=== PATIENT | male | born 2000 | race Caucasian/White ===

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

== ENCOUNTER 2022-05-23 17:37 | Emergency (ER) | payer BC, MEDICAID, SELFPAY ==
[2022-05-23 17:48] VITALS: BP 112/67; PULSE 76; RESP 17; TEMP 36.7; O2SAT 99
--- NOTE | 2022-05-23 18:23 | ED.GENADUL_ITS ---
Discharge Plan Disposition Patient Disposition: HOME Condition: Stable Discharge Details Clinical Impression: Dermal hypersensitivity reaction Primary Care Provider: Unknown,Unknown ED Provider: Twin Pérez Home Meds and New Rx's Prescriptions: Continued omeprazole magnesium [Prilosec OTC] 20 mg tablet,delayed release (DR/EC) 20 mg PO DAILY Qty: 90 1RF fluoxetine [Prozac] 20 mg capsule 20 mg PO DAILY Qty: 30 0RF Discharge Instructions Instructions: Dermatitis (ED) Additional Instructions: Return immediately to the emergency department for any new or significant worsening of your symptoms including any difficulty breathing, swelling to your lips tongue or mouth, or any other concerning findings. Use the medication as p rescribed and if not improving in the next 5 days please follow-up with your primary care provider for reassessment. You may also use [id number] oral Benadryl or Benadryl cream for itching. Referrals: Primary Care Provider [Outside] (Placement improving in the next 5 days please follow-up with primary care provider or urgent care for reassessment.) Discharge Data Discharge Date/Time-TO BE ENTERED AT DEPARTURE: 05/23/22 19:06 Medical Decision Making Patient presenting to the emergency department for chief complaint of catheter staying in reaction to the right side of his neck also noted on his hands. He states he was working and his boss noted a catheter on his back yesterday which is when symptoms started. Patient denies any other contact with substances that are irritants. Patient denies any swelling to lips tongue mouth, difficulty breathing or swallowing, or other systemic symptoms. Physical exam does show a dermatitis mainly to the right side of the neck and on his digits. Will prescribe high-strength steroid cream and recommend [id number] Benadryl. No signs of anaphylaxis or life-threatening airway disorder noted at this time but will give patient close monitoring and return and follow-up precautions. After discussion of diagnosis and plan of care patient has no further needs, questions, or concerns and states clear understanding to return to the emergency department for any worsening symptoms. This documentation was generated using [employer] system, please disregard any oddities of phrase or misspellings. HPI General Mode of arrival: ambulatory . Date/Time Provider Initiated Documentation: 05/23/22 17:47 . Limitations to Documentation: no limitations . Information obtained by: patient and RN notes reviewed . History of Present Illness 22 year old M presents to the emergency department with the chief complaint of rash from [employer], described as moderate, with intensity rated at 5. Quality is described as burning, and is localized to the neck and right. Patient started experiencing this day(s) (1) and it has been constant. No relieving factors improve symptom(s), Patient notes no other symptoms.. Patient did receive the following treatments prior to arrival, none Related Data Home Medications Medication Instructions Recorded Confirmed fluoxetine 20 mg capsule (Prozac) 20 mg PO DAILY #30 caps 11/10/21 11/10/21 omeprazole magnesium 20 mg 20 mg PO DAILY #90 tabs 11/10/21 11/10/21 tablet,delayed release (Prilosec OTC) Previous Rx's Medication Instructions Recorded fluoxetine 20 mg capsule (Prozac) 20 mg PO DAILY #30 caps 11/10/21 omeprazole magnesium 20 mg 20 mg PO DAILY #90 tabs 11/10/21 tablet,delayed release (Prilosec OTC) Allergies Allergy/AdvReac Type Severity Reaction Status Date / Time No Known Allergies Allergy Verified 10/07/21 13:05 General Stated Complaint: Cellulitis BRAYDEN: 4 Review of Systems Constitutional Constitutional: Denies chills and Denies fever(s) ENT Ears, Nose, Mouth, and Throat: Denies lip swelling, Denies odynophagia, Denies throat swelling and Denies tongue swelling Cardiovascular Cardiovascular: Denies chest pain Respiratory Respiratory: Denies stridor and Denies wheezing Gastrointestinal Gastrointestinal: Denies abdominal pain and Denies odynophagia Musculoskeletal Musculoskeletal: Denies myalgias, Denies numbness and Denies tingling Integumentary/Breasts Skin/Breast: Reports as per HPI and Reports rash Neurologic Neurologic: Denies numbness and Denies tingling Allergic/Immunologic Allergic/Immunologic: Denies lip swelling, Denies throat swelling, Denies tongue swelling and Denies wheezing PFSH All Active Problems (Updated 05/23/22 @ 18:25 by Twin Pérez NP) Dermal hypersensitivity reaction (Acute) GERD (gastroesophageal reflux disease) (Chronic) Anxiety (Chronic) Medical History Attention deficit hyperactivity disorder Closed left clavicular fracture With surgery 01/08 Learning difficulty IEP Oppositional defiant disorder (09/11/15) Pain in testicle due to trauma ER evaluation 09/22/18 Right inguinal hernia Surgical History Circumcision History of herniorrhaphy right inguinal, Dr Dee Dee Nolen, [facility] Repair, Undescended Testicle 07/23 Family History Mother Essential hypertension Mental disorder depression/anxiety Father Mental disorder anxiety Sister Asthma Grandparent Diabetes Mental disorder anxiety Neoplasm Social History Smoking/Tobacco Use Status: Never Smoking risk assessment performed?: Yes Alcohol Intake: never Drug use: Never Substance use type: does not use Household members: other Details: Living at home with mom, dad, sister Education Level: other Details: Working at [employer]; Training: ladder one: on-line and hands-on current occupation: [employer] advisor Pets and animals: Yes (2 cats) Pets and animals: cat(s) Sexually active: Yes Seatbelt use: always Helmet use: Yes Helmet use: always Fire extinguisher in home: Yes Carbon monox detector in home: Yes Do you feel safe at home: Yes Do you feel safe in your relationship?: Yes Exam Const General: cooperative, healthy appearing, comfortable, no acute distress and not ill appearing Orientation: alert, awake and oriented x3 HENMT Head: normal to inspection and normocephalic Ears: external ears normal General nose exam: external nose normal Face and sinus: normal facial exam Mouth: oral mucosae normal, lip normal, tongue normal, no audible dysphonia, no drooling and no trismus Throat: uvula midline Neck Neck: normal visual inspection, full ROM and no meningeal signs Resp Effort & Inspection: normal respiratory effort, able to speak in complete sentences and no stridor Auscultation: clear to auscultation bilaterally Cardio Rate: regular rate Rhythm: regular rhythm Heart Sounds: S1 normal and S2 normal Skin Rashes: rashes noted maculopapular rash right lateral multiple locations Course Vital Signs Vital signs: Vital Signs Temperature 36.7 C 05/23/22 17:48 Pulse 76 05/23/22 17:48 Respiratory Rate 17 05/23/22 17:48 Blood Pressure 112/67 05/23/22 17:48 Pulse Oximetry 99 05/23/22 17:48 Temperature 36.7 C 05/23/22 17:48 Temperature Source Temporal Artery Scan 05/23/22 17:48 Pulse 76 05/23/22 17:48 Respiratory Rate 17 05/23/22 17:48 Respiratory Effort Non-Labored 05/23/22 17:58 Blood Pressure 112/67 05/23/22 17:48 Blood Pressure Position Sitting 05/23/22 17:48 Pulse Oximetry 99 05/23/22 17:48 Oxygen Delivery Method Room Air 05/23/22 17:48 Oxygen Flow Rate 0 05/23/22 17:48 Pain Level 0 05/23/22 17:48
[2022-05-23] MEDS: Triamcinolone 0.1% CR 15 GM TUBE TP (19:06)
== END 2022-05-23 19:06 | disposition home or self-care (01) ==
PROVIDERS: Emergency Provider Nurse Practitioner Family
DX: T78.40XA Allergy, unspecified, initial encounter (principal); R21 Rash and other nonspecific skin eruption; X58.XXXA Exposure to other specified factors, initial encounter
CPT/HCPCS: 99283; 99284

== ENCOUNTER 2023-05-10 16:38 | Emergency (ER) | payer BC, SELFPAY ==
[2023-05-10 16:42] VITALS: BP 128/90; PULSE 60; RESP 20; TEMP 37; O2SAT 90
--- NOTE | 2023-05-10 17:21 | W.ED.GENAD ---
Discharge Plan Disposition Patient Disposition: Home Discharge Details Clinical Impression: Contact dermatitis and eczema due to plant Primary Care Provider: Tirso Kong ED Provider: Twin Pérez Home Meds and New Rx's Prescriptions: New methylprednisolone [Medrol (Joey)] 4 mg tablets,dose pack See Rx Instructions .ROUTE .COMPLEX Qty: 21 0RF Rx Instructions: orally per package directions No Action omeprazole magnesium [Prilosec OTC] 20 mg tablet,delayed release (DR/EC) 20 mg PO DAILY Qty: 90 1RF fluoxetine [Prozac] 20 mg capsule 20 mg PO DAILY Qty: 30 0RF Discharge Instructions Instructions: Poison Keisha (ED) Additional Instructions: Please take medication as prescribed and return to the emergency department for any new or worsening symptoms. If you do not see some resolution or improvement after being on the steroids for 3 to 4 days please follow-up with your primary care provider or urgent care for reassessment. Referrals: Tirso Kong MD [Primary Care Provider] - Discharge Data Discharge Date/Time-TO BE ENTERED AT DEPARTURE: 05/10/23 17:30 Medical Decision Making Patient with poison keisha that is diffuse to upper and lower extremities along with genitals and neck. Patient placed upon steroids. After discussion of diagnosis and plan of care patient has no further needs, questions, or concerns and states clear understanding to return to the emergency department for any worsening symptoms. This documentation was generated using [employer] dictation system, please disregard any oddities of phrase or misspellings. HPI General Mode of arrival: ambulatory. Date/Time Provider Initiated Documentation: 05/10/23 17:21. Limitations to Documentation: no limitations. Information obtained by: patient. History of Present Illness 22 year old M presents to the emergency department with the chief complaint of Rash, described as similar to prior episodes, Patient started experiencing this day(s) (3) Patient notes no other symptoms.. Related Data Home Medications Medication Instructions Recorded Confirmed fluoxetine 20 mg capsule (Prozac) 20 mg PO DAILY #30 caps 11/10/21 05/10/23 omeprazole magnesium 20 mg 20 mg PO DAILY #90 tabs 11/10/21 05/10/23 tablet,delayed release (Prilosec OTC) methylprednisolone 4 mg tablets in See Rx Instructions PO .COMPLEX 05/10/23 a dose pack (Medrol (Joey)) #21 dose pk Previous Rx's Medication Instructions Recorded fluoxetine 20 mg capsule (Prozac) 20 mg PO DAILY #30 caps 11/10/21 omeprazole magnesium 20 mg 20 mg PO DAILY #90 tabs 11/10/21 tablet,delayed release (Prilosec OTC) methylprednisolone 4 mg tablets in See Rx Instructions PO .COMPLEX 05/10/23 a dose pack (Medrol (Joey)) #21 dose pk Allergies Allergy/AdvReac Type Severity Reaction Status Date / Time No Known Allergies Allergy Verified 10/07/21 13:05 General Stated Complaint: RashLesion BRAYDEN: 4 Review of Systems Constitutional Constitutional: Denies chills and Denies fever(s) ENT Ears, Nose, Mouth, and Throat: Denies lip swelling, Denies mouth lesions, Denies sore throat, Denies throat swelling and Denies tongue swelling Cardiovascular Cardiovascular: Denies dyspnea Respiratory Respiratory: Denies dyspnea and Denies wheezing Integumentary/Breasts Skin/Breast: Reports as per HPI, Reports erythema and Reports rash Allergic/Immunologic Allergic/Immunologic: Denies lip swelling, Denies throat swelling, Denies tongue swelling and Denies wheezing PFSH All Active Problems (Updated 05/10/23 @ 17:22 by Twin Pérez NP) Contact dermatitis and eczema due to plant (Acute) GERD (gastroesophageal reflux disease) (Chronic) Anxiety (Chronic) Medical History Attention deficit hyperactivity disorder Closed left clavicular fracture With surgery 01/08 Learning difficulty IEP Oppositional defiant disorder (09/11/15) Pain in testicle due to trauma ER evaluation 09/22/18 Right inguinal hernia Surgical History Circumcision History of herniorrhaphy right inguinal, Dr Dee Dee Nolen, [place] Repair, Undescended Testicle 07/23 Family History Mother Essential hypertension Mental disorder depression/anxiety Father Mental disorder anxiety Sister Asthma Grandparent Diabetes Mental disorder anxiety Neoplasm Social History Smoking/Tobacco Use Status: Never Smoking risk assessment performed?: Yes Alcohol Intake: never Drug use: Never Substance use type: does not use Household members: other Details: Living at home with mom, dad, sister Education Level: other Details: Working at [employer]; Training: ladder one: on-line and hands-on current occupation: fruit or nut farmer Pets and animals: Yes (2 cats) Pets and animals: cat(s) Sexually active: Yes Seatbelt use: always Helmet use: Yes Helmet use: always Fire extinguisher in home: Yes Carbon monox detector in home: Yes Do you feel safe at home: Yes Do you feel safe in your relationship?: Yes Exam Const General: cooperative and comfortable Orientation: alert and awake HENVA Head: normal to inspection, normocephalic and atraumatic General nose exam: external nose normal Face and sinus: normal facial exam Mouth: oral mucosae normal, lip normal and no audible dysphonia Resp Effort & Inspection: normal respiratory effort and able to speak in complete sentences Skin Rashes: rashes noted maculopapular rash diffuse multiple locations Course Vital Signs Vital signs: Vital Signs Temperature 37.0 C 05/10/23 16:42 Pulse 60 05/10/23 16:42 Respiratory Rate 20 05/10/23 16:42 Blood Pressure 128/90 05/10/23 16:42 Pulse Oximetry 90 L 05/10/23 16:42 Temperature 37.0 C 05/10/23 16:42 Temperature Source Oral 05/10/23 16:42 Pulse 60 05/10/23 16:42 Respiratory Rate 20 05/10/23 16:42 Blood Pressure 128/90 05/10/23 16:42 Blood Pressure Position Sitting 05/10/23 16:42 Pulse Oximetry 90 L 05/10/23 16:42 Oxygen Delivery Method Room Air 05/10/23 16:42 Oxygen Flow Rate 0 05/10/23 16:42
== END 2023-05-10 17:30 | disposition home or self-care (01) ==
PROVIDERS: Emergency Provider Nurse Practitioner Family; PCP Internal Medicine
DX: L24.7 Irritant contact dermatitis due to plants, except food (principal)
CPT/HCPCS: 99282

== ENCOUNTER 2023-12-15 18:59 | Emergency (ER) | payer BC, SELFPAY ==
[2023-12-15] VITALS (53 sets, daily range): BP systolic 120–149; BP diastolic 62–85; PULSE 52–72; RESP 8–24; TEMP 36.4–36.8; O2SAT 98
--- NOTE | 2023-12-15 19:00 | RT.EKG_ITS ---
APPROVED REPORT Exam: Resting ECG Reason for Exam: Dizzy Patient Location: E HR:62 bpm ECG Measurements Heart Rate 62 AXIS LA 161 P 66 QRSd 98 QRS 98 QT 384 T 65 QTc 389 Conclusion Sinus arrhythmia...V-rate 49- 72, variation>10% ST elev, probable normal early repol pattern...ST elevation, age<55
--- NOTE | 2023-12-15 19:45 | DI.CT_ITS ---
Exam(s) CT BRAIN NECK CTA EXAM: CT BRAIN NECK CTA CLINICAL HISTORY: intermittent vertigo, fullness right head. TECHNIQUE: Imaging Protocol: Axial CT angiography was performed with multi-slice acquisition and mu lti-planar and/or 3D reconstructions. CONTRAST MATERIAL: Intravenous: Omnipaque 350 contrast volume:85 mL COMPARISON: CT CT ABDOMEN PELVIS W from 08/29/2019 FINDINGS: Due to machine malfunction, delayed postcontrast CT brain could not be performed. The examination is limited due to patient motion artifact. CT Head W/O: Ventricles and Extra axial spaces: Normal in size and morphology for the patient's age. Hemorrhage: None. Cerebral parenchyma: Normal. No acute mass effect. Midline shift: None. Brainstem/Cerebellum: Normal. Calvarium: Normal. Visualized Paranasal sinuses/Mastoids: Clear. Soft Tissues: Unremarkable. Enhancement: Unremarkable. CTA Neck W: Common Carotid: Right: No dissection, occlusion or significant stenosis. Left: No dissection, occlusion or significant stenosis. External Carotid: Right: No occlusion or significant stenosis. Left: No occlusion or significant stenosis. Internal Carotid: Right: No dissection, occlusion or significant stenosis. Left: No dissection, occlusion or significant stenosis. Vertebral Artery: Right: No dissection, occlusion or significant stenosis. Left: No dissection, occlusion or significant stenosis. Lung Apices: Normal. Bones: Within normal limits for the patient's age. There is straightening of the normal cervical lord osis. This may be due to muscle spasm or patient positioning. Soft Tissues: Normal. Thyroid gland: Unremarkable. CTA Brain W: Internal Carotid Arteries: Normal. Anterior Cerebral Arteries: Right: No aneurysm, occlusion or significant stenosis. Left: No aneurysm, occlusion or significant stenosis. Middle Cerebral Arteries: Right: No aneurysm, occlusion or significant stenosis. Left: No aneurysm, occlusion or significant stenosis. Posterior Cerebral Arteries: Right: No aneurysm, occlusion or significant stenosis. Left: No aneurysm, occlusion or significant stenosis. Vertebral Arteries: Right: No aneurysm, occlusion or significant stenosis. Left: No aneurysm, occlusion or significant stenosis. Basilar Artery: No aneurysm, occlusion or significant stenosis. IMPRESSION: 1. Patient motion artifact. 2. The delayed postcontrast CT brain could not be performed due to machine malfunction. 3. No large vessel occlusion or significant stenosis on the CT angiography of the head. 4. No acute intracranial process. 5. No occlusion or significant stenosis on the CT angiography of the neck. RADIATION DOSE DELIVERED: Total DLP DATA REPOSITORY: All CT scans at this facility are submitted to the National Radiology Data Registry (NRDR) Dose Index Registry (DIR) with the [employer] (ACR). RADIATION OPTIMIZATION: All CT scans at this facility use at least one of these dose optimization te chniques: automated exposure control; mA and/or kV adjustment per patient size (includes targeted exa ms where dose is matched to clinical indication); or iterative reconstruction.
[2023-12-15] MEDS: Meclizine 25 MG TAB PO (19:49)
[2023-12-15 19:53] LABS: Abs Immature Grans 0.02 10^3/uL (0.0-0.06); Absolute Basophil Count 0.06 10^3/uL (0.0-0.2); Absolute Eosinophil Count 0.11 10^3/uL (0.0-0.7); Absolute Lymphocyte Count 1.84 10^3/uL (1.2-3.4); Absolute Monocyte Count 0.67 10^3/uL (0.1-0.8); Absolute Neutrophil Count 3.76 10^3/uL (1.2-6.7); Basophils % 0.9; Eosinophils % 1.7; HCT 42.9 % (40.0-50.0); HGB 14.5 g/dL (13.5-17.5); Immature Grans % 0.3; Lymphocytes % 28.5; MCH 28.7 pg (27.0-33.0); MCHC 33.8 % (32.0-36.0); MCV 85 fL (80-95); MPV 9.3 fL (8.0-11.0); Monocytes % 10.4; Neutrophils % 58.2; Platelet Count 226 10^3/uL (130-400); RBC 5.05 10^6/uL (4.36-5.78); RDW 11.9 % (11.8-14.1); RDW-SD 37.2 fL; WBC 6.46 10^3/uL (4.4-10.8)
[2023-12-15 20:15] LABS: ALT 16 U/L (16-63); AST 11 U/L (15-37); Albumin 4.3 g/dL (3.4-5.0); Alkaline Phosphatase 74 U/L (46-116); Anion Gap 7.5 mmol/L (3-11); BUN 13 mg/dL (7-18); Bilirubin, Total 0.7 mg/dL (0.2-1.0); CO2 29.5 mmol/L (21.0-32.0); CREATININE 0.9 mg/dL (0.70-1.30); Chloride 104 mmol/L (98-107); Estimated GFR 124.61 (mL/min/1.73m2); Glucose 92 mg/dL (74-106); Magnesium 2.1 mg/dL (1.8-2.4); Potassium 3.5 mmol/L (3.5-5.1); Sodium 141 mmol/L (136-145); Total Protein 7.7 g/dL (6.4-8.2)
--- NOTE | 2023-12-15 20:15 | ED.GENADUL_ITS ---
Discharge Plan Disposition Patient Disposition: Home Condition: Stable Discharge Details Chief Complaint: Dizzy/Sync Clinical Impression: Vertigo, Dizzy spells Primary Care Provider: Tirso Kong ED Provider: Gonzalez Loza Home Meds and New Rx's Prescriptions: No Action No Known Home Meds Discharge Instructions Instructions: Dizziness (ED) Additional Instructions: Please drink plenty of fluids to stay hydrated. Allow for plenty of rest over the next couple days. Please follow-up with your primary care physician. Call tomorrow. You should be seen by your primary care physician later this week for reassessment. If symptoms persist, additional outpatient diagnostic testing may be necessary. Should you have worsening or new concerning symptoms, please return to the emergency department. Stand Alone Forms: Work Release Referrals: Triso Kong MD [Primary Care Provider] - [facility] General Mode of arrival: ambulatory . Date/Time Provider Initiated Documentation: 12/15/23 19:05 . Limitations to Documentation: no limitations . Information obtained by: patient . HPI Narrative: 23-year-old male presents with chief complaint of dizziness. Patient notes symptoms started about 2 weeks ago when he experienced an episode of sudden onset vertigo. Patient notes he was sweating and that everything was spinning. Symptoms lasted about 4 minutes. He sat down which helped. He felt normal after symptoms resolved. He has been feeling well until last night when he again developed dizziness. He has been experiencing episodes intermittently since last night. He describes room spinning with associated nausea. States symptoms are worse when he is walking around. He does note some mild pressure on the right side of his head. No pain. No visual changes. No neck stiffness. No fevers. No ear pain/trauma. Related Data Home Medications Medication Instructions Recorded Confirmed Unknown [No Known Home Meds] 12/15/23 12/15/23 Allergies Allergy/AdvReac Type Severity Reaction Status Date / Time No Known Allergies Allergy Verified 12/15/23 19:08 General Stated Complaint: Dizzy/Sync BRAYDEN: 3 Review of Systems All systems reviewed & are unremarkable except as noted in HPI and below Constitutional Constitutional: Denies fever(s) and Denies weakness ENT Ears, Nose, Mouth, and Throat: Reports vertigo and Reports dizziness Cardiovascular Cardiovascular: Denies chest pain and Denies syncope Respiratory Respiratory: Denies cough Neurologic Neurologic: Reports as per HPI, Denies abnormal speech, Denies confusion, Reports vertigo, Reports dizziness, Denies syncope, Denies convulsions, Denies sensory deficit and Denies weakness Psychiatric Psychiatric: Denies confusion Exam Const General: cooperative Nutritional Appearance: well nourished Orientation: alert and awake HENAR Head: normocephalic and atraumatic Ears: TM's normal bilaterally Mouth: moist mucous membranes Throat: posterior oropharynx normal Eyes Conjunctivae: normal conjunctivae Sclera: normal sclerae EOM: EOM intact bilaterally Neck Neck: trachea midline and supple Resp Effort & Inspection: normal respiratory effort Auscultation: clear to auscultation bilaterally, no rales, no rhonchi and no wheezes Cardio Rate: regular rate Rhythm: regular rhythm Heart Sounds: S1 normal, S2 normal and no murmurs GI Palpation: soft, not firm, no guarding, no masses, not rigid and nontender Skin General skin exam: no rashes or lesions noted Neuro General: patient alert, patient awake, patient oriented x3 and tone normal Cranial Nerves: CN's II-XI intact bilaterally Cognition: normal cognition Speech: speech normal Gait: normal gait Motor: strength 5/5 throughout Sensory Exam: no sensory deficits noted Coordination: [id number] test normal, hejk-[id number] test normal, Romberg test normal and rapid alternating movement UE normal (nl) Extrem General: no edema Psych Appearance: grossly normal Mental Status: mental status grossly normal Speech and Movement: speech and movement normal Course Vital Signs Vital signs: Vital Signs Temperature 36.4 C L 12/15/23 19:09 Pulse 70 12/15/23 19:09 Respiratory Rate 16 12/15/23 19:09 Blood Pressure 149/76 H 12/15/23 19:09 Pulse Oximetry 98 12/15/23 19:09 Temperature 36.4 C L 12/15/23 19:09 Temperature Source Oral 12/15/23 19:09 Pulse 70 12/15/23 19:09 Respiratory Rate 16 12/15/23 19:09 Respiratory Effort Normal 12/15/23 19:13 Respiratory Depth Normal 12/15/23 19:13 Respiratory Pattern Normal 12/15/23 19:13 Blood Pressure 149/76 H 12/15/23 19:09 Pulse Oximetry 98 12/15/23 19:09 Oxygen Delivery Method Room Air 12/15/23 19:09 Oxygen Flow Rate 0 12/15/23 19:09 Lab/Test Results Lab/Test Results: Laboratory Tests Range/Units 12/15/23 19:15 WBC (4.4-10.8) 10^3/uL 6.46 RBC (4.36-5.78) 10^6/uL 5.05 Hgb (13.5-17.5) g/dL 14.5 Hct (40.0-50.0) % 42.9 MCV (80-95) fL 85 MCH (27.0-33.0) pg 28.7 MCHC (32.0-36.0) % 33.8 RDW (11.8-14.1) % 11.9 Plt Count (130-400) 10^3/uL 226 MPV (8.0-11.0) fL 9.3 Immature Gran % 0.3 Neutrophils % 58.2 Lymphocytes % 28.5 Monocytes % 10.4 Eosinophils % 1.7 Basophils % 0.9 Nucleated RBC % (0.0-0.3) % 0.0 Absolute Neutrophils (1.2-6.7) 10^3/uL 3.76 Absolute Lymphocytes (1.2-3.4) 10^3/uL 1.84 Absolute Monocytes (0.1-0.8) 10^3/uL 0.67 Absolute Eosinophils (0.0-0.7) 10^3/uL 0.11 Absolute Basophils (0.0-0.2) 10^3/uL 0.06 Medical Decision Making 23-year-old male here with intermittent dizziness since last night. Patient had similar brief episode 2 weeks ago. Patient is hemodynamically stable. Neuro intact on exam. Symptoms seem vertiginous in nature. Considered cardiogenic etiology: EKG was reviewed interpreted by me: Sinus arrhythmia 62 bpm, benign early repol. Considered mass occupying lesion and CVA. CTA of the brain and neck interpreted by radiology: No acute findings. Labs reviewed and nondiagnostic. tech writer reviewed and patient did have a couple episodes of sinus bradycardic in the upper 40s and low 50s at rest. This certainly could be contributing to symptoms. Patient was noted to be orthostatic with a 20 point drop in blood pressure. He was given a dose of meclizine and IV fluid bolus and reassessed and notably feeling better. Patient ambulating around the department without any difficulty. Plan for close outpatient follow-up with PCP for reassessment ideally later this week. Usual customary discharge instructions were reviewed with the patient. He was provided a work note for remainder of the week and of rest was recommended. He was encouraged to return immediately should have any worsening or new concerning symptoms. Quality:SDOH Health Related Social Needs: No Data to Display PFSH All Active Problems Dizzy spells (Acute) Vertigo (Acute) GERD (gastroesophageal reflux disease) (Chronic) Anxiety (Chronic) Medical History Closed left clavicular fracture With surgery 01/08 Right inguinal hernia Pain in testicle due to trauma ER evaluation 09/22/18 Oppositional defiant disorder (09/11/15) Learning difficulty IEP Attention deficit hyperactivity disorder Surgical History History of herniorrhaphy right inguinal, Dr Dee Dee Nolen, [facility] Repair, Undescended Testicle 07/23 Circumcision Family History Mother Essential hypertension Mental disorder depression/anxiety Father Mental disorder anxiety Sister Asthma Grandparent Diabetes Mental disorder anxiety Neoplasm Social History Smoking/Tobacco Use Status: Never Smoking risk assessment performed?: Yes Alcohol Intake: never Drug use: Never Substance use type: does not use Household members: other Details: Living at home with mom, dad, sister Education Level: other Details: Working at [employer]; Training: ladder one: on-line and hands-on current occupation: shot core drill operator helper Pets and animals: Yes (2 cats) Pets and animals: cat(s) Sexually active: Yes Seatbelt use: always Helmet use: Yes Helmet use: always Fire extinguisher in home: Yes Carbon monox detector in home: Yes Do you feel safe at home: Yes Do you feel safe in your relationship?: Yes
[2023-12-15 20:17] LABS: Troponin I < 50 ng/L (< or =60)
[2023-12-15] MEDS: Normal Saline - Diluent 50 ML VIAL IJ (20:35)
[2023-12-15] MEDS: Omnipaque 350 MG/ML 100 ML BTL IJ (20:36)
--- NOTE | 2023-12-15 21:59 | DI.VRAD_ITS ---
PROCEDURE INFORMATION: Exam: CTA Head With Contrast, Arteriography Exam date and time: 12/15/2023 8:36 PM Age: 23 years old Clinical indication: Other: Intermittent vertigo, fullness right head TECHNIQUE: Imaging protocol: Computed tomographic angiography of the head with contrast. Exam focused on the arteries. 3D rendering (Not supervised by radiologist): MIP and/or 3D reconstructed images were created by the technologist. Contrast material: OMNI 350; Contrast volume: 85 ml; Contrast route: INTRAVENOUS (IV); COMPARISON: CT CERVICAL SPINE WITHOUT CONTRA 10/05/2017 7:52 PM FINDINGS: ANTERIOR CIRCULATION: Right internal carotid artery: Intracranial segment is patent with no significant stenosis. No aneurysm. Right middle cerebral artery: No occlusion or significant stenosis. No aneurysm. Right anterior cerebral artery: No occlusion or significant stenosis. No aneurysm. Left internal carotid artery: Intracranial segment is patent with no significant stenosis. No aneurysm. Left middle cerebral artery: No occlusion or significant stenosis. No aneurysm. Left anterior cerebral artery: No occlusion or significant stenosis. No aneurysm. POSTERIOR CIRCULATION: Right vertebral artery: No occlusion or significant stenosis. No aneurysm. Left vertebral artery: No occlusion or significant stenosis. No aneurysm. Basilar artery: No occlusion or significant stenosis. No aneurysm. Right posterior cerebral artery: No occlusion or significant stenosis. No aneurysm. Left posterior cerebral artery: No occlusion or significant stenosis. No aneurysm. Brain: No definite mass, mass effect, or midline shift. Cerebral ventricles: No ventriculomegaly. Bones/joints: Unremarkable. No acute fracture. Soft tissues: Unremarkable. IMPRESSION: No large vessel stenosis or occlusion. PROCEDURE INFORMATION: Exam: CTA Neck With Contrast Exam date and time: 12/15/2023 8:36 PM Age: 23 years old Clinical indication: Other: Intermittent vertigo, fullness right head TECHNIQUE: Imaging protocol: Computed tomographic angiography of the neck with contrast. Exam focused on the cervical segments of the vasculature. 3D rendering (Not supervised by radiologist): MIP and/or 3D reconstructed images were created by the technologist. Contrast material: OMNI 350; Contrast volume: 85 ml; Contrast route: INTRAVENOUS (IV); COMPARISON: CT CERVICAL SPINE WITHOUT CONTRA 10/05/2017 7:52 PM FINDINGS: Right common carotid artery: No stenosis. No dissection or occlusion. Right internal carotid artery: No stenosis of the extracranial segment. No dissection or occlusion. Right external carotid artery: No occlusion or stenosis of the origin. Left common carotid artery: No stenosis. No dissection or occlusion. Left internal carotid artery: No stenosis of the extracranial segment. No dissection or occlusion. Left external carotid artery: No occlusion or stenosis of the origin. Right vertebral artery: No stenosis. No dissection or occlusion. Left vertebral artery: No stenosis. No dissection or occlusion. Soft tissues: Normal. No significant soft tissue swelling. Bones/joints: No acute fracture. IMPRESSION: No stenosis or occlusion. REFERENCES: NASCET CRITERIA. The degree of stenosis in the cervical segment of the internal carotid artery is based on NASCET criteria. Normal is no stenosis. Mild is less than 50% stenosis. Moderate is 50-69% stenosis. Severe is 70% to 99% stenosis. Total occlusion is no detectable patent lumen. Dictated and Authenticated by: Iron Pitts MD. Ordering:KIET Roth MD
[2023-12-15] MEDS: Lactated Ringers 1,000 ML 1000 ML IV (22:23)
== END 2023-12-16 00:24 | disposition home or self-care (01) ==
PROVIDERS: Emergency Provider Student in an Organized Health Care Education/Training Program; PCP Internal Medicine
DX: R42 Dizziness and giddiness (principal); R11.0 Nausea
CPT/HCPCS: 36415; 70496; 70498; 80053; 93005; 96360; 99285; 83735; 84484; 85025; 93010; 99284; J3490

== ENCOUNTER 2024-11-06 08:01 | Emergency (ER) | payer OTHER, SELFPAY ==
[2024-11-06 08:01] VITALS: BP 135/80; PULSE 80; RESP 15; TEMP 36.3; O2SAT 98
--- OUTSIDE RECORDS SUMMARY | 2024-11-06 08:08 | XMS_ITS | Encounter Summary ---
Author Organization [facility] [place] [address] Care Team Providers Care Helminthologist Name Role Phone Paramjit Mendez MD Primary Care Provider Encounter Details Date Type Department Care Team (Late st Contact Info) Description 12/17/2017 Telephone [place] [phone] Jordin Hope MD [facility] [place] [address] Social History Tobacco Use Types Packs/Day Years Used Date Smoking Tobacco: Never Sex and Gender Information Value Date Recorded Sex Assigned at Not on file Gender Identity Not on file Sexual Orientation Not on file documented as of this encounter Miscellaneous Notes * Telephone Encounter - Lakesha Meneses - 12/17/2017 10:29 AM EDT 12/01 & H# [phone] & C# [phone] left messages for family to return call. 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 Brace ordered 08/23/17 and F/U to be 3 months after wearing brace. Letter sent to family. 12/10/17 Ladan (mom) called and said Jarett had gotten a brace and tried wearing it, however did not like it and has not been wearing it. He seems to be doing fine and Ladan did not want to schedule any follow up at this time. I ask her to please anytime she would like to schedule a follow up. documented in this encounter Plan of Treatment Not on file documented as of this encounter Visit Diagnoses Not on filedocumented in this encounter Care Teams Helminthologist Relationship Specialty Start Date End Date Paramjit Mendez MD [address] [place] [address] PCP - General Pediatrics 04/08/17 documented as of this encounter
--- OUTSIDE RECORDS SUMMARY | 2024-11-06 08:08 | XMS_ITS | Encounter Summary ---
Author Organization [facility] [place] [address] Care Team Providers Care Hatchery Helper Name Role Phone Paramjit Mendez MD Primary Care Provider Encounter Details Date Type Department Care Team (Late st Contact Info) Description 08/23/2017 Telephone [place] [phone] Emma Kline APRN [facility] [place] [address] Social History Tobacco Use Types Packs/Day Years Used Date Smoking Tobacco: Never Sex and Gender Information Value Date Recorded Sex Assigned at Not on file Gender Identity Not on file Sexual Orientation Not on file documented as of this encounter Miscellaneous Notes * Telephone Encounter - Emma Kline APRN - 09/06/2017 1:09 PM EST After discussing with mom and reviewing Dr. Hope's last note, it was decided that we would go ahead and order the brace for Jarett's Pectus carinatum. It will be made at [facility]. documented in this encounter Plan of Treatment Not on file documented as of this encounter Visit Diagnoses Not on filedocumented in this encounter Care Teams Hatchery Helper Relationship Specialty Start Date End Date Paramjit Mendez MD [address] [place] [address] PCP - General Pediatrics 04/08/17 documented as of this encounter
--- OUTSIDE RECORDS SUMMARY | 2024-11-06 08:08 | XMS_ITS | Clinical Summary ---
Author Organization [facility] [place] [address] Care Team Providers Care Occupational Therapy Department Chair Name Role Phone Paramjit Mendez MD Primary Care Provider Allergies No known active allergies Medications No known medications Active Problems Problem Noted Date Diagnosed Date Scrotal trauma, initial encounter 09/23/2018 Overview (09/23/2018): Blunt testicular trauma, outside hospital requesting assistance with DX/Tx of this condition. 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/2017 Social History Tobacco Use Types Packs/Day Years Used Date Smoking Tobacco: Never Sex and Gender Information Value Date Recorded Sex Assigned at Not on file Gender Identity Not on file Sexual Orientation Not on file Last Filed Vital Signs Vital Sign Reading Time Taken Comments Blood Pressure 120/65 04/08/2017 9:30 AM EDT Pulse 65 04/08/2017 9:30 AM EDT Temperature - - Respiratory Rate - - Oxygen Saturation - - Inhaled Oxygen Concentration - - Weight 57.8 kg (127 lb 6.4 oz) 04/08/2017 9:30 A M EDT Height 175 cm (5' 8.9) 04/08/2017 9:30 AM EDT Body Mass Index 18.87 04/08/2017 9:30 AM EDT Plan of Treatment Health Maintenance Due Date Last Done Comments HPV vaccine (1 - Male 3-dose series) 2017 HIV screen 2020 Hepatitis C Screening 2020 Hepatitis B vaccine (0-59 yrs) (1) 2021 Tetanus/Diphtheria/Pertussis Vaccines (1 - Tdap) 05/18 Covid-19 Vaccine (1 - season) 2024 Influenza (Flu) vaccine (1 o f 1 - Influenza standard series) 05/21/2024 Care Teams Occupational Therapy Department Chair Relationship Specialty Start Date End Date Paramjit Mendez MD [address] [place], [place] [id number] PCP - General Pediatrics 04/08/17
--- OUTSIDE RECORDS SUMMARY | 2024-11-06 08:08 | XMS_ITS | Encounter Summary ---
[place] [address] Care Team Providers Care Sofa Cover Inspector Name Role Phone Paramjit Mendez MD Primary Care Provider [phone] Encounter Details Date Type Department Care Team (Late st Contact Info) Description 08/23/2017 Orders [place] [address] Jordin Hope MD [facility] [place] [address] Pectus carinatum Social History Tobacco Use Types Packs/Day Years Used Date Smoking Tobacco: Never Sex and Gender Information Value Date Recorded Sex Assigned at Not on file Gender Identity Not on file Sexual Orientation Not on file documented as of this encounter Plan of Treatment Not on file documented as of this encounter Visit Diagnoses Diagnosis Pectus carinatum documented in this encounter Care Teams Sofa Cover Inspector Relationship Specialty Start Date End Date Paramjit Mendez MD [address] [place] [address] PCP - General Pediatrics 04/08/17 documented as of this encounter
--- OUTSIDE RECORDS SUMMARY | 2024-11-06 08:08 | XMS_ITS | Encounter Summary ---
Author Organization [facility] [place] [address] Care Team Providers Care Telephone Cleaner Name Role Phone Paramjit Mendez MD Primary Care Provider [phone] Reason for Visit * Reason Onset Date Comments Hospital Transfer 09/23/2018 Blunt testicul ar trauma Encounter Details Date Type Department Care Team (Late st Contact Info) Description 09/23/2018 Telephone Pediatric Urology at [facility] [place] [address] Antonio Mitchell MD [facility] [place] [address] Hospital Transfer (Blunt testicular trauma) Social History Tobacco Use Types Packs/Day Years Used Date Smoking Tobacco: Never Sex and Gender Information Value Date Recorded Sex Assigned at Not on file Gender Identity Not on file Sexual Orientation Not on file documented as of this encounter Miscellaneous Notes * Telephone Encounter - Antonio Mitchell MD - 09/23/2018 10:53 AM EST Last evening I was production trainer for pediatric and adult urology. I was paged by the transfer center regarding patient Jarett Ortiz a 18-year-old with blunt left testicular trauma, . I recall Beti Marie was the referring healthcare provider at [facility] and she was requesting we accept Jarett in transfer for a scrotal ultrasound to better assess if he had significantly injured his left testicle when it was stepped on while he was playing basketball earlieron September 22. I answered my page within a minute and was placed on hold and by the time the transfer center nurse got back to me, the nurse stated that the bed situation was so tight we had no ER beds for the patient. The referring healthcare provider had decided to refer the patient to another hospital( [facility]?) for studies and/or treatment because of the significant delay our institution had in providing care for her patient. ANTONIO MITCHELL MD documented in this encounter Plan of Treatment Not on file documented as of this encounter Visit Diagnoses Diagnosis Scrotal trauma, initial encounter documented in this encounter Care Teams Telephone Cleaner Relationship Specialty Start Date End Date Paramjit Mendez MD [address] [place] [address] PCP - General Pediatrics 04/08/17 documented as of this encounter
--- OUTSIDE RECORDS SUMMARY | 2024-11-06 08:08 | XMS_ITS | Encounter Summary ---
Author Organization [facility] [place] [address] Care Team Providers Care Marketing Recruiter Name Role Phone Paramjit Mendez MD Primary Care Provider [phone] Encounter Details Date Type Department Care Team (Late st Contact Info) Description 08/17/2017 Telephone [place] [id number] Emma Kline APRN [facility] [place] [address] Social History Tobacco Use Types Packs/Day Years Used Date Smoking Tobacco: Never Sex and Gender Information Value Date Recorded Sex Assigned at Not on file Gender Identity Not on file Sexual Orientation Not on file documented as of this encounter Miscellaneous Notes * Telephone Encounter - Lakesha Meneses - 08/17/2017 4:56 PM EST ----- Message from Lakesha Meneses sent at 08/17/2017 4:07 PM EST ----- Contact: Laly (mom) C# [phone] ----- Message ----- From: Lakesha Meneses Sent: 08/17/2017 4:05 PM To: QUINTON Salter Debra said Jarett is having chest pain when playing basketball, as well as other times. Please give her a call at her C# above. Thank you, Lakesha documented in this encounter Plan of Treatment Not on file documented as of this encounter Visit Diagnoses Not on filedocumented in this encounter Care Teams Marketing Recruiter Relationship Specialty Start Date End Date Paramjit Mendez MD [address] [place] [address] PCP - General Pediatrics 04/08/17 documented as of this encounter
--- OUTSIDE RECORDS SUMMARY | 2024-11-06 08:08 | XMS_ITS | Encounter Summary ---
Author Organization [facility] [place] [address] Care Team Providers Care Link Knitting Machine Operator Name Role Phone Paramjit Mendez MD Primary Care Provider [phone] Reason for Visit * Reason Comments Chest Abnormality * Consultation (Routine) - Closed Specialty Diagnoses / Procedures Referred By Todd holliday Referred To Contact Pediatric Surgery Diagnoses Pectus carinatum Pectus Carinatum Paramjit Mendez MD [address] [place] [address] [place] [address] [facility] Ped[facility] Surgery [address] [place] [phone] Referral ID Status Reason Start Date Expiration Date V isits Requested Visits Authorized [id number] Closed Consult, Test & Treat Connection [facility] 02/10/2017 02/10/2018 1 1 Encounter Details Date Type Department Care Team (Late st Contact Info) Description 04/08/2017 9:30 AM EDT Office [place] [address] Jordin Hope MD [facility] [place] [address] Pectus carinatum Social History Tobacco Use Types Packs/Day Years Used Date Smoking Tobacco: Never Sex and Gender Information Value Date Recorded Sex Assigned at Not on file Gender Identity Not on file Sexual Orientation Not on file documented as of this encounter Last Filed Vital Signs Vital Sign Reading [...] Mass Index 18.87 04/08/2017 9:30 AM EDT Body Mass Index Percentile 36.13% 04/08/2017 9:3 0 AM EDT Growth Chart: [facility] (Boys, 2-2 0 Years) documented in this encounter Patient Instructions * Patient Instructions* Jordin Hope MD - 04/08/2017 9:30 AM EDT You were seen today for evaluation of a chest wall malformation known as pectus carinatum. This deformity is not a life threatening condition, is not a malignancy and does not require radiographic (Xray) imaging studies. The following recommendations were made: 1. consider orthotic bracing if deformity increases. 2. Follow up in 6- 12 months until patient reaches skeletal maturity and prn if it changes in severity earlier 3. No restriction on physical activities of any kind. documented in this encounter Progress Notes * Jordin Hope MD - 04/08/2017 9:30 AM EDT Pediatric Surgery Attending Outpatient Consultation Note [facility] [place] [address] FAX: 04/08/2017 1859 Jarett was seen today in the Pediatric Surgery outpatient clinic for evaluation of a chest wall deformity at the request of Dr. Paramjit Mendez MD his PCP. He was accompanied by his mother. He was seen today with Dr. Mcintosh and Wendy Becerril, S3. Jarett is a 16 10/12 year old male noted at approximately age 15 to have a protrusion of the chest wall develop. Over the past year as he entered into a growth spurt his anterior chest began to protrude much more. Jarett denies any shortness of breath, or palpitations and although he initially statedhe had no idea why he was here for his appointment, he stated that he has occasional discomfort when he lays on his stomach PMH: full term by emergency due to preeclampsia ADHD Anxiety and anger disorder Undescended testicle orchiopexy 2002 at [facility] Family History:negative for Pectus excavatum, carinatum, or other chest wall deformities, no history of Marfan or Justo-Danlos syndromes. Asthma sister, diabetes maternal grandparents, maternal anxiety depression and hypertension, paternal anxiety Social History: Entering the 9 th Grade student. Lives with his parents who are . He has 1 younger sister. Jarett participates in basketball, baseball, fishing, hunting and bike riding. He states that he is just hanging out this summer Allergies:has No Known Allergies. Food allergies:none Metal allergies:none Medications: No current outpatient prescriptions on file prior to visit. No current facility-administered medications on file prior to visit. IMMUNIZATIONS: UTD BLEEDING DISORDERS: None Review of Systems - NEG POS Comments General/constitutional x poor weight gain CV x Resp x Eyes x ENT x GI x x Heme/lymph x MS X Chest wall protrusion Skin x Neuro/Psych x ADHD Physical Exam: 14 10/12 year old male in NAD WT 57.8 kg (127 lb 6.4 oz) (58 %, Source: [facility] 2-20 Years) HT 175 cm (5' 8.9) (77 %, Source: CDC 2-20 Years) Body mass index is 18.87 kg/(m^2). 36 %ile based on CDC 2-20 Years BMI-for-age data using vitals from 04/08/2017. BP 120/65 Pulse 65 Eyes: PERRLA, sclera white, Ears: no scars lesions or masses, hearing non-impaired Nose: nares clear septum midline Mouth: lips pink and symmetrical dentition Throat:oral mucosa pink and moist soft & hard palates contiguous tongue moist w/o ulcers tonsils without hypertrophy Neck: full ROM trachea midline no thyromegaly Respiratory: respirations even & unlabored Clear/ equal bilaterally No evidence of restrictive or obstructive airway disorder Cardiac: No Lifts heaves or thrills PMI in normal position RRR, w/o murmurs rubs or gallops capillary refill brisk Chest: Breasts symmetrical Pectus carinatum very mild, slightly asymmetrical with left vertical ridge with external compression the deformity can be pushed back into a normal position Lymphatic: cervical supraclavicular inguinal lymph nodes nonpalpable Abdomen: no masses or tenderness no hernias, well-healed left inguinal incision from orchiopexy rectal exam deferred G/U: Dilan stage IV Musculoskeletal: gait coordinated & smooth head/neck normal upper extremity right and left normal lower extremity right and left normal no muscle atrophy or weakness no evidence of Marfan's, Justo-Danlos syndromes no Sprengel's deformity no scoliosis, mild kyphosis digits and nails without clubbing, cyanosis, petechiae, ischemia, infection, or inflammation Skin: no rashes, lesions or ulcers; no discoloration warm & dry, normal turgor Neuro: superficial touch & pain sensation intact bilat Psych: alert and oriented x 3, very bashful, interrupted and was embarrassed by mother's questions recent memory and remote intact Studies: Photographs after consent were obtained Impression: 16 [birth year][age] year old male with a pectus carinatum deformity that is very mild. Recommendation: 1. consider orthotic bracing if deformity increases. 2. Follow up in 6- 12 months until patient reaches skeletal maturity and prn if it changes in severity earlier 3. No restriction on physical activities of any kind. 4. Reassurance that this is not a life threatening condition nor is it a malignancy and does not require any imaging studies I discussed only briefly the clinical presentation and management of pectus carinatum. This included what is known about the etiology, associated findings and a very history of management. I have shared with Jarettand his mother that I will discuss this in much more detail if his deformity increases. From my extensive experience in evaluating and caring for patients with pectus carinatum I believethat Jarett's very mild deformity currently meets criteria for observation. While the progression of this deformity can not be predicted with absolute certainty, Jarett is still at risk for progression and worsening of his pectus carinatum deformity due to the fact that he has not yet reached skeletal maturity which is usually at age 18 for males. I have recommended follow-up in 6-12 months or earlier if he notices increase in the deformity. Thank you for allowing me to participate in Jarett's care. Should you have any questions concerning my recommendations please feel to contact me. Jordin Hope M.D. Pediatric Surgery power brake operator and Pediatrics [facility] [address] fax documented in this encounter Plan of Treatment Not on file documented as of this encounter Visit Diagnoses Diagnosis Pectus carinatum documented in this encounter Care Teams Link Knitting Machine Operator Relationship Specialty Start Date End Date Paramjit Mendez MD [address] [place] [address] [place] [address] PCP - General Pediatrics 04/08/17 documented as of this encounter
--- OUTSIDE RECORDS SUMMARY | 2024-11-06 08:09 | XMS_ITS | Clinical Summary ---
Author Organization [facility] Address [address] [place] [address] Care Team Providers Care Blacking Wheel Tender Name Role Phone Paramjit Mendez MD Primary Care Provider [phone] Paramjit Mendez MD Unavailable [phone] Allergies No known active allergies Medications lisdexamfetamine (VYVANSE) 70 mg capsule Take 70 mg by mouth every morning. Active Social History Tobacco Use Types Packs/Day Years Used Date Smoking Tobacco: Never Interpersonal Safety Answer Date Record ed Physically Hurt Never 04/21/2020 Verbally Threaten Not on file 04/21/2020 Sex and Gender Information Value Date Recorded Sex Assigned at Not on file Legal Sex Male 18:32 EST Gender Identity Not on file Sexual Orientation Not on file Obstetrics History Last Filed Vital Signs Vital Sign Reading Time Taken Comments Blood Pressure 123/70 05/16/2016 1400 EDT Pulse 110 05/16/2016 1400 EDT Temperature 37.3 ??C (99.1 ??F) 05/16/2016 1400 EDT Respiratory Rate 20 05/16/2016 1400 EDT Oxygen Saturation 100% 05/16/2016 1400 EDT Inhaled Oxygen Concentration - - Weight 47.6 kg (105 lb) 05/16/2016 1400 EDT Height - - Body Mass Index - - Plan of Treatment Health Maintenance Due Date Last Done Comments Hepatitis C Screen 2002 Hepatitis B Vaccine (1 of 3 - 19+ 3-dose series) 05/18 COVID-19 Vaccine (2023- season) 2024 Care Teams Blacking Wheel Tender Relationship Specialty Start Date End Date Paramjit Mendez MD [address] [place] [address] PCP - General 05/19/16 Paramjit Mendez MD [address] [place] [address] 05/19/16
--- OUTSIDE RECORDS SUMMARY | 2024-11-06 08:09 | XMS_ITS | Encounter Summary ---
Author Organization [facility] Address [address] [place] [address] Care Team Providers Care Electronic Development Technician Name Role Phone Paramjit Mendez MD Primary Care Provider [phone] Shane Petit MD Unavailable [phone] Reason for Visit * Reason Comments Neck Pain Helmeted football pl morgan tackled, landed on left hip, second player landed on the back of his head, patient c/o neck pain Encounter Details Date Type Department Care Team (Late st Contact Info) Description 05/16/2016 13:54 EDT - 05/16/2016 15:26 EDT Emergency [facility] Emergency Department - [address] [address] Nnamdi Kaur MD [address], [address] [place] [address] Emergency, MD Serg Cervical strain, initial encounter (Primary Dx) Discharge Disposition: Home or Self Care Social History Tobacco Use Types Packs/Day Years [...] - - Body Mass Index - - documented in this encounter Discharge Diagnoses Diagnosis S16.1XXA Strain of muscle, fascia and tendon at neck level, initial encounter-S16.1XXA[ICD-10-CM] W50.0XXA Accidental hit or strike by another person, initial encounter-W50.0XXA[ICD-10-CM] Y93.61 Activity, [place] tackle football-Y93.61[ICD-10-CM] documented in this encounter Discharge Instructions * Attachments The following attachments cannot be sent through Care Everywhere. * CERVICAL STRAIN ([place]) documented in this encounter Medications at Time of Discharge lisdexamfetamine (VYVANSE) 70 mg capsule Take 70 mg by mouth every morning. documented as of this encounter Discharge Disposition Disposition Code Departure Means Destination Home or Self Care documented in this encounter ED Notes * Beni Rdz RN - 05/16/2016 1525 EDT Patient A+O, speech clear, respirations unlabored, skin warm and dry, denies headache, vision changes, lightheadedness, dizziness, nausea or vomiting, ambulating without difficulty, NAD. Discharge instructions provided and reviewed with patient and patient's parents and discharged to home. * Beni Rdz RN - 05/16/2016 1425 EDT A+O, no LOC, speech clear, STOKES, csmts intact in all 4 extremities, respirations unlabored, skin pink, warm and dry no distress noted, helmet removed by Dr. Kaur with EMT holding traction, parents at bedside. * Nnamdi Kaur MD - 05/16/2016 1406 EDT DOS: 05/16/2016 HPI Comments: I, Kade Prasad, am scribing for Nnamdi Kaur MD while he is personally performing the service. Kade Osmar 05/16/2016 14:07 Jarett Ortiz is a 15 y.o. male without significant past medical history who presents with neck injury. The patient was playing football today when he was tackled to the ground before another player fell on top of him, striking his posterior neck with his helmet. The patient had delayed onset of neck stiffness and pain, and was sent in for evaluation of possible occult injury. He has not noticed any weakness, numbness or paresthesias of his upper extremity. Complains of 4 out of 10 achy bilateral paracervical muscle pain. The pain is constant and not worsened with movement. He had no loss consciousness and suffered no other injuries in the fall. He presents afebrile mildly tachycardic andtearful due to pain but with otherwise normal vital signs in no acute distress. The history is provided by the patient and the mother. No proj mgr was used. Review of Systems Review of Systems Gastrointestinal: Positive for nausea. Musculoskeletal: Positive for arthralgias (Posterior hip pain, partially resolved.), neck pain (Posterior) and neck stiffness. Negative for gait problem. Neurological: Negative for syncope. Psychiatric/Behavioral: The patient is nervous/anxious. The patient's past medical, family and social history was reviewed and updated as needed. No Known Allergies Vital Signs Temp: 37.3 ??C (99.1 ??F) Temp src: Oral Pulse: (!) 110 Resp: 20 SpO2: 100 % BP: 123/70 O2 Device: None (Room air) Physical Exam Constitutional: He is oriented to person, place, and time. He appears well- developed and well-nourished. HENT: Head: Normocephalic and atraumatic. Mouth/Throat: Oropharynx is clear and moist. Eyes: Conjunctivae and EOM are normal. Pupils are equal, round, and reactive to light. Neck: Normal range of motion. Neck supple. No thyromegaly present. Cardiovascular: Normal rate, regular rhythm and normal heart sounds. Abdominal: Soft. Bowel sounds are normal. He exhibits no distension. There is no tenderness. Lymphadenopathy: He has no cervical adenopathy. Neurological: He is alert and oriented to person, place, and time. Skin: Skin is warm and dry. No erythema. Psychiatric: He has a normal mood and affect. His behavior is normal. Nursing note and vitals reviewed. RESULTS EKG orders: None Radiology orders: CERVICAL SPINE 2-3 VIEWS Patient had cervical spine X-ray, which was significant for no acute fracture or malalignment. Straightening of the normal cervical lordosis which can be seen with muscle spasm. Patient had x- rays that were obtained, reviewed, and interpreted by myself in conjunction with a radiologist. Please see radiology report for further details. ED Lab Results Labs Reviewed - No data to display Relevant Data Procedures ED COURSE A medical screening exam was performed. 15-year-old male presents with neck pain after being struck in the posterior neck with a helmet. Patient had a reassuring physical examination with no step- offs or deformities of the cervical spine. The remainder of examination was nonfocal and reassuring. Plain films of the cervical spine showed no fractures or dislocations. After this the patient ambulated without difficulty was able to fully range his neck tolerated oral intake was otherwise well-appearing. He felt much improved and was no longer tearful or in significant pain. He was able to be discharged outpatient follow-up as needed with return precautions to the emergency department given by myself which his parents understood. ASSESSMENT AND PLAN Final diagnoses: Cervical strain, initial encounter DISPOSITION: Discharged The patient's pain was managed to an adequate level weighing risk vs. benefit of further medications. Upon departure from the Emergency Department, the patient's pain was 0 on a zero to ten scale. Condition at departure from the Emergency Department: Improved PCP: Paramjit Mendez [facility] Number of Diagnoses or Management Options Amount and/or Complexity of Data Reviewed Tests in the radiology section of CPT??: ordered and reviewed Decide to obtain previous medical records or to obtain history from someone other than the patient:yes Obtain history from someone other than the patient: yes (Mother.) Review and summarize past medical records: yes This documentation is recorded by Kade Prasad acting as Scribe under the direction and presence of Nnamdi Kaur MD. Nnamdi Kaur MD: I personally performed the services recorded by the scribe in my presence. I confirm the scribe's documentation has been reviewed by me to accurately and completely record my work,treatment, procedures, and medical decision making. 05/16/2016 15:03 No flowsheet data found. documented in this encounter Plan of Treatment Not on file documented as of this encounter Procedures Procedure Name Priority Date/Time Associated Diagnosis Comments CERVICAL SPINE 2-3 VIEWS STAT 05/16/2016 14:33 EDT documented in this encounter Results * CERVICAL SPINE 2-3 VIEWS (05/16/2016 14:33 EDT) Anatomical Region Laterality Modality Other 05/16/2016 14:3 3 EDT 05/16/2016 16:09 EDT Narrative 05/16/2016 16:09 EDT CERVICAL SPINE 2-3 VIEWS ??05/16/2016 2:33 PM SIGNS AND SYMPTOMS/COMMENTS: ??struck with helmet in posterior neck COMPARISONS: None. TECHNIQUE: AP, lateral, and odontoid views of the cervical spine. FINDINGS: There is slight straightening of the normal cervical lordosis. No acute fracture or compression deformity is identified. The lateral masses of C1 are appropriately located on C2. The odontoid is unremarkable. The vertebral bodies are in anatomic alignment. The prevertebral soft tissues are unremarkable. IMPRESSION: 1. No acute fracture or malalignment. 2. Slight straightening of the normal cervical lordosis can be seen with muscle spasm. I have personally reviewed the images and the above interpretation and agree with the findings. Procedure Note Beckie Way MD - 05/16/2016 CERVICAL SPINE 2-3 VIEWS 05/16/2016 2:33 PM SIGNS AND SYMPTOMS/COMMENTS: struck with helmet in posterior neck COMPARISONS: None. TECHNIQUE: AP, lateral, and odontoid views of the cervical spine. FINDINGS: There is slight straightening of the normal cervical lordosis. No acute fracture or compression deformity is identified. The lateral masses of C1 are appropriately located on C2. The odontoid is unremarkable. The vertebral bodies are in anatomic alignment. The prevertebral soft tissues are unremarkable. IMPRESSION: 1. No acute fracture or malalignment. 2. Slight straightening of the normal cervical lordosis can be seen with muscle spasm. I have personally reviewed the images and the above interpretation and agree with the findings. us Nnamdi Kaur MD RDMS IMG DIAGNOSTIC IMAGING OR DERABLES Final Result documented in this encounter Visit Diagnoses Diagnosis Cervical strain, initial encounter- Primary documented in this encounter Discontinued Medications Medication Sig Discontinue Reason Start Date End Da te guaiFENesin (ROBITUSSIN) 100 mg/5 mL liquid Take by mouth every 4 hours as needed. 05/16/2016 documented as of this encounter Historical Medications * This list may reflect changes made after this encounter. lisdexamfetamine (VYVANSE) 70 mg capsule Take 70 mg by mouth every morning. guaiFENesin (ROBITUSSIN) 100 mg/5 mL liquid Take by mouth every 4 hours as needed. 05/16/2016 added in this encounter Care Teams Electronic Development Technician Relationship Specialty Start Date End Date Paramjit Mendez MD [address] [place] [address] PCP - General 05/16/16 05/18/16 Shane Petit MD [address] [place] [address] 05/16/16 05/18/16 documented as of this encounter
--- OUTSIDE RECORDS SUMMARY | 2024-11-06 08:09 | XMS_ITS | Encounter Summary ---
Author Organization [facility] Address [address] [place] [address] Care Team Providers Care Chief Engineer'S Helper Name Role Phone Paramjit Mendez MD Primary Care Provider [phone] Paramjit Mendez MD Unavailable [phone] Encounter Details Date Type Department Care Team (Latest Contact Info) Description 09/22/2018 15:05 EST - 09/22/2018 23:59 EST Hospital Encounter [facility] [address] [place] [address] Unknown, Provider, MD Discharge Disposition: Home or Self Care Social History Tobacco Use Types Packs/Day Years Used Date Smoking Tobacco: Never Sex and Gender Information Value Date Recorded Sex Assigned at Not on file Legal Sex Male 18:32 EST Gender Identity Not on file Sexual Orientation Not on file documented as of this encounter Medications at Time of Discharge lisdexamfetamine (VYVANSE) 70 mg capsule Take 70 mg by mouth every morning. documented as of this encounter Discharge Disposition Disposition Code Departure Means Destination Home or Self Nursing Home documented in this encounter Plan of Treatment Not on file documented as of this encounter Visit Diagnoses Not on filedocumented in this encounter Care Teams Chief Engineer'S Helper Relationship Specialty Start Date End Date Paramjit Mendez MD [address] [place] [address] PCP - General 05/19/16 Paramjit Mendez MD [address] [place] [address] 05/19/16 documented as of this encounter
--- OUTSIDE RECORDS SUMMARY | 2024-11-06 08:09 | XMS_ITS | Encounter Summary ---
Author Organization [facility] Address [address] [place] [address] Care Team Providers Care Ironing Worker Name Role Phone Paramjit Mendez MD Primary Care Provider [phone] Paramjit Mendez MD Unavailable [phone] Reason for Visit * (Routine) - Receiving Office to Obtain Authorization Specialty Diagnoses / Procedures Referred By Todd holliday Referred To Contact Procedures XR OUTSIDE IMAGES MSK Unknown, Provider, MD Referral ID Status Reason Start Date Expiration Date Visits Requested Visits Authorized [id number] Receiving Office to Obtain Authorization 01/21/2021 1 1 Encounter Details Date Type Department Care Team (Latest Contact Info) Description 01/16/2021 - 01/16/2021 23:59 EDT Hospital Encounter [facility] Secondary Reads [place] Discharge Disposition: Home or Self Care Social [...] or Self Care documented in this encounter Plan of Treatment Not on file documented as of this encounter Procedures Procedure Name Priority Date/Time Associated Diagnosis Comments XR OUTSIDE IMAGES MSK Routine 01/21/2021 7:44 EDT documented in this encounter Results * XR OUTSIDE IMAGES MSK (01/21/2021 7:44 EDT) Narrative 01/21/2021 7:44 EDT This is a non-reportable exam. us Provider Unknown MD ARAIZA OTHER IMAGING ORDERABLES Final Result documented in this encounter Visit Diagnoses Not on filedocumented in this encounter Care Teams Ironing Worker Relationship Specialty Start Date End Date Paramjit Mendez MD [address] [place] [address] PCP - General 05/19/16 Paramjit Mendez MD [address] [place] [address] 05/19/16 documented as of this encounter
--- OUTSIDE RECORDS SUMMARY | 2024-11-06 08:09 | XMS_ITS | Encounter Summary ---
Author Organization [facility] Address [address] [place] [address] Care Team Providers Care Disc Pad Grinding Machine Feeder Name Role Phone Paramjit Mendez MD Primary Care Provider [phone] Paramjit Mendez MD Unavailable [phone] Encounter Details Date Type Department Care Team (Late st Contact Info) Description 10/08/2021 Lab Requisition [facility] Pathology & Laboratory Medicine - [facility] [address] [place] [address] Outr Resulting Lab, Provider Social History Tobacco Use Types Packs/Day Years [...] Procedure Name Priority Date/Time Associated Diagnosis Comments ZZCOVID-19 TEST [facility] PCR Today 10/07/2021 11:30 EST COVID-19 TESTING Routine 10/07/2021 11:3 0 EST documented in this encounter Results * COVID-19 TEST [facility] PCR (10/07/2021 11:30 EST) Swab 10/07/2021 11:3 0 EST 10/08/2021 17:28 EST us Provider Outr Resulting Lab MICROBIOLOGY - GENER AL ORDERABLES Final Result [facility] [address] [place] [address] * COVID-19 TESTING (10/07/2021 11:30 EST) COVID-19 rt-PCR Result Negative Negative 10/09/2021 10:59 EST [facility] Comment: This test has not been FDA cleared or approved. This test has been authorized by FDA under an EUA for use by authorized laboratories. This test has been authorized only for detection of nucleic acid from 2019-nCoV, not for any other viruses or pathogens. This test is only authorized for the duration of the declaration that circumstances exist justifying the authorization of emergency use of in vitro diagnostic tests for detection and/or diagnosis of 2019-nCoV under section 564(b)(1) of Act, 21 U.S.C ?? 360bbb-3(b) (1), unless the authorization is terminated or revoked sooner. Negative results do not preclude 2019-nCoV infection and should not be used as the sole basis for treatment or other patient management decisions. Negative results must be combined with clinical observations, patient history, and epidemiological information. Testing was performed using the siis SARS-CoV-2 assay ([employer] on the Isis 6800 System Performing Lab [facility]is [address] [facility] Lab 10/09/2021 10:59 EST [facility] Swab 10/07/2021 11:3 0 EST 10/08/2021 17:28 EST us Provider Outr Resulting Lab MICROBIOLOGY - GENER AL ORDERABLES Final Result [facility] [address] [place] [address] documented in this encounter Visit Diagnoses Not on filedocumented in this encounter Care Teams Disc Pad Grinding Machine Feeder Relationship Specialty Start Date End Date Paramjit Mendez MD [address] [facility] [address] PCP - General 05/19/16 Paramjit Mendez MD [address] [place] [address] 05/19/16 documented as of this encounter
--- OUTSIDE RECORDS SUMMARY | 2024-11-06 08:09 | XMS_ITS | Encounter Summary ---
Author Organization [facility] Address [address] [place] [address] Care Team Providers Care Mechanical Piping Designer Name Role Phone Paramjit Mendez MD Primary Care Provider [phone] Paramjit Mendez MD Unavailable Encounter Details Date Type Department Care Team (Late st Contact Info) Description 09/22/2018 Historical Results Only [facility] Radiology Results [address] [id number] Naina Ramirez, METAL BUILDING ASSEMBLER ENP [address] [place] [address] Social History Tobacco Use Types Packs/Day Years [...] Procedure Name Priority Date/Time Associated Diagnosis Comments US SCROTUM WITH LIMITED DUPLEX 09/22/2018 23:39 EST documented in this encounter Results * US SCROTUM WITH LIMITED DOPPLER (09/22/2018 23:39 EST) Anatomical Region Laterality Modality Body Other 09/22/2018 23:3 9 EST Narrative 09/22/2018 23:39 EST ? EXAM: ULTRASOUND/TESTICULAR DOPPLER ? EX. D/ (2327) ? CLINICAL INFORMATION: ? scrotal trauma ? EXAM: ?US Scrotum ? EXAM DATE/TIME: ?09/22/2018 10:21 PM ? CLINICAL HISTORY: ?18 years old, male; Pain and injury or trauma; Injury history: ? Stepped on during basketball game; Initial encounter; Crushing; ? Testes; Scrotum pain; Injury date: 09/22/2018; Additional info: ? Scrotal trauma ? TECHNIQUE: ?Real-time ultrasound of the scrotum and contents with color ? Doppler and image documentation. ? COMPARISON: ?No relevant prior studies available. ? FINDINGS: ?Right Testicle: ??The right testicle appears within normal ? limits measuring 4.4 x 1.9 x 2.7 cm. It is normal in ? echogenicity. There are no focal lesions identified. There is ? normal vascular flow to the right testicle. ?Left Testicle: ??The left testicle is normal in echogenicity. ? The left testicle measured 3.7 x 1.6 x 2.7 cm. There are no ? focal lesions identified. There is normal vascular flow to the ? left testicle. ?Epididymides: ??The right epididymis is within normal limits. ? There is normal vascular flow to the right epididymis. The left ? epididymis is difficult to evaluate secondary to the left ? scrotal hematoma. ?Scrotum: ??There is a small right hydrocele measuring 2.0 x 1.0 ? x 1.5 cm. Within the left scrotum there is a large hematoma ? measuring approximately 2.3 x 4.4 cm. It is of mixed ? echogenicity. ? IMPRESSION: ? Left scrotal hematoma. Clinical correlation is recommended. ? Continue follow up as clinically warranted. The testicles appear ? within normal limits. ? REPORT SIGNED IN OTHER VENDOR SYSTEM 09/22/2018 ?Reported By: Rafy Asif MD ? CC: ? Transcribed Date/Time: 09/22/2018 (5459) ? Elementary Science Teacher: ? Printed Date/Time: 03/12/2019 (1416) ? PAGE 1 ? Signed Report ? Procedure Note Rafy Asif MD - 07/27/2019 EXAM: ULTRASOUND/TESTICULAR DOPPLER EX. D/ (2327) CLINICAL INFORMATION: scrotal trauma EXAM: US Scrotum EXAM DATE/TIME: 09/22/2018 10:21 PM CLINICAL HISTORY: 18 years old, male; Pain and injury or trauma; Injury history: Stepped on during basketball game; Initial encounter; Crushing; Testes; Scrotum pain; Injury date: 09/22/2018; Additional info: Scrotal trauma TECHNIQUE: Real-time ultrasound of the scrotum and contents with color Doppler and image documentation. COMPARISON: No relevant prior studies available. FINDINGS: Right Testicle: The right testicle appears within normal limits measuring 4.4 x 1.9 x 2.7 cm. It is normal in echogenicity. There are no focal lesions identified. There is normal vascular flow to the right testicle. Left Testicle: The left testicle is normal in echogenicity. The left testicle measured 3.7 x 1.6 x 2.7 cm. There are no focal lesions identified. There is normal vascular flow to the left testicle. Epididymides: The right epididymis is within normal limits. There is normal vascular flow to the right epididymis. The left epididymis is difficult to evaluate secondary to the left scrotal hematoma. Scrotum: There is a small right hydrocele measuring 2.0 x 1.0 x 1.5 cm. Within the left scrotum there is a large hematoma measuring approximately 2.3 x 4.4 cm. It is of mixed echogenicity. IMPRESSION: Left scrotal hematoma. Clinical correlation is recommended. Continue follow up as clinically warranted. The testicles appear within normal limits. REPORT SIGNED IN OTHER VENDOR SYSTEM 09/22/2018 Reported By: Rafy Asif MD CC: Transcribed Date/Time: 09/22/2018 (1347) Elementary Science Teacher: Printed Date/Time: 03/12/2019 (1593) PAGE 1 Signed Report us Naina Ramirez METAL BUILDING ASSEMBLER ENP IMG US ORDERABLES Final Re sult documented in this encounter Visit Diagnoses Not on filedocumented in this encounter Care Teams Mechanical Piping Designer Relationship Specialty Start Date End Date Paramjit Mendez MD [address] [place] [address] PCP - General 05/19/16 Paramjit Mendez MD [address] [place] [address] 05/19/16 documented as of this encounter
--- OUTSIDE RECORDS SUMMARY | 2024-11-06 08:09 | XMS_ITS | Referral Summary ---
Author Organization [facility] Address [address] [place] [address] Care Team Providers Care Cd Reactor Operator Name Role Phone Paramjit Mendez MD Primary Care Provider [phone] Paramjit Mendez MD Unavailable Allergies No known active allergies Medications lisdexamfetamine [...] Mass Index - - Plan of Treatment Not on file Care Teams Cd Reactor Operator Relationship Specialty Start Date End Date Paramjit Mendez MD [address] [place] [address] PCP - General 05/19/16 Paramjit Mendez MD [address] [place] [address] 05/19/16
--- OUTSIDE RECORDS SUMMARY | 2024-11-06 08:09 | XMS_ITS | Encounter Summary ---
Author Organization [facility] Address [address] [place] [address] Care Team Providers Care Hotel Recreational Facilities Manager Name Role Phone Unavailable Primary Care Provider Unavailabl e Encounter Details Date Type Department Care Team (Late st Contact Info) Description 08/15/2003 8:18 EST - 08/15/2003 11:59 EST Hospital Encounter [address] [id number] Melissa Weinstein MD [address] [place], [place] [id number] Discharge Disposition: Auto Discharge Social History Tobacco Use Types Packs/Day Years Used Date Smoking Tobacco: Never Assessed Sex and Gender Information Value Date Recorded Sex Assigned at Not on file Legal Sex Male 18:32 EST Gender Identity Not on file Sexual Orientation Not on file documented as of this encounter Discharge Disposition Disposition Code Departure Means Destination Auto Discharge documented in this encounter Plan of Treatment Not on file documented as of this encounter Procedures Procedure Name Priority Date/Time Associated Diagnosis Comments SURGICAL PATHOLOGY Routine 08/15/2003 0:00 EST documented in this encounter Results * SURGICAL PATHOLOGY (08/15/2003 0:00 EST) Pathology Report: SURGICAL PATHOLOGY REPORT Reports generated via electronic interface contain original data; however they are lacking the format of the original report. Caution should be taken when reading/interpreting unformatted reports. Name: ? MILA ORTIZ ? Accession #: ? [id number] ? : ? 2000 (Age: 3) ??M ? Collect Date: ? 08/15/2003 ? Location: ? [facility] ? Receive Date: ? 08/17/2003 ? Provider: MELISSA SUBRAMANIAN* CARL AVILA Copy to: ? Final Pathologic Diagnosis: A. ?Hernia sac, site not further specified, herniorrhaphy: 1. ?Mesothelial-lined fibroconnective tissue with mcllerian-like inclusion. ??See comment. 2. ?Negative for malignancy. B. ?Appendix epididymis, left, orchiopexy: 1. ?Mesothelial-lined fibroconnective tissue and skeletal muscle. 2. ?Negative for malignancy. Comment: ? Senior Software Quality Analyst sections of (A) have been reviewed at intradepartmental consultation conference. (Dr. Mota) Document reviewed and electronically signed by: SALVADOR MOTA MD Report ??Date: 08/20/2003 17:07 By the signature above, the attending physician certifies that he/she has personally conducted a gross and/or microscopic examination of the described specimens and rendered or confirmed the above diagnosis. Specimen(s) Received: A. ?Hernia sac B. ?Appendix epididymis Clinical History: ? Undescended testicle L Gross Description: ? Received in formalin labeled Diana and hernia sac is a 1.5 x 0.4 x 0.1 cm pink fibromembranous portion of soft tissue. ??No tubular structures or discrete masses are evident. ??The specimen is entirely submitted as (A). Received in formalin labeled Diana and appendix epididymis are two villagomez-pink portions of soft tissue, 0.1 cm and 0.3 x 0.1 x 0.1 cm. ??Entirely submitted as (B). ??(Vitor Andrade)/francesca End of Report VANNESSA TORRE 08/15/2003 08/17/2003 10: 00 EST us Melissa Weinstein MD PATHOLOGY ORDERABLES Fi nal Result VANNESSA TORRE [address] [place] [address] documented in this encounter Visit Diagnoses Not on filedocumented in this encounter
--- NOTE | 2024-11-06 08:14 | ED.GENADUL_ITS ---
Discharge Plan Disposition Patient Disposition: Home Condition: Stable Discharge Details Clinical Impression: Abrasion of scalp Primary Care Provider: Fransisco Crenshaw ED Provider: Paramjit Pinto Home Meds and New Rx's Prescriptions: No Action No Known Home Meds Discharge Instructions Instructions: Abrasions ED Additional Instructions: You were seen in the emergency department for the minor abrasion of your scalp from bumping her head on a plow, the wound should heal without issue, please have somebody check your scalp for increased redness or drainage of pus or large swelling to the area for signs of infection and return for such. Return for any developing coordination difficulty, projectile vomiting, visual changes or other neurologic concerns. We updated your tetanus today. Stand Alone Forms: Work Release Referrals: Fransisco Crenshaw MD [Primary Care Provider] - Discharge Data Discharge Date/Time-TO BE ENTERED AT DEPARTURE: 11/06/24 08:30 HPI General Date/Time Provider Initiated Documentation: 11/06/24 08:14 . HPI Narrative: 24 year-old male presents to ED today by POV/ambulating with a chief complaint of scalp abrasion/laceration, hit his head on a plow at work, with onset just prior to arrival. Quality described as not overly painful, had brief dizziness/headache, no radiation to amnesia, nausea/vomiting, visual changes, lethargy, tinnitus, neck pain, LOC, active bleeding. Severity is described as mild. Palliating factors include nothing specific attempted. Provoking factors include nothing specific. Events leading up to the incident/Associated Symptoms: Patients last Tdap 2014. Patient not anticoagulated. Related Data Home Medications ?Medication ?Instructions ?Recorded ?Confirmed Unknown [No Known Home Meds] 12/15/23 11/06/24 Allergies Allergy/AdvReac Type Severity Reaction Status Date / Time No Known Allergies Allergy Verified 11/06/24 08:08 General Stated Complaint: Laceration BRAYDEN: 4 Review of Systems All systems reviewed & are unremarkable except as noted in HPI and below Exam Narrative Exam Narrative: GENERAL APPEARANCE: Well-nourished, non-toxic, awake and alert, atraumatic, no acute distress. SKIN: Warm, pink, dry, intact, without rashes/lesions/ulcerations. HEAD: Normocephalic, 0.2cm scalp abrasion to posterior crown, no active bleeding, no gross contamination, normal hair distribution for gender/age. EYES: Normal conjunctiva, no exudates on lids/lashes, vision grossly intact ENT: Nares patent, no circumoral cyanosis, no facial swelling NECK: Supple, trachea midline, painless cervical ROM, no midline cervical vertebral tenderness. LUNGS/CHEST: Non-labored respirations, normal A/P diameter, symmetrical expansion, no chest wall deformity HEART (CV/PV): No peripheral edema, no JVD. ABDOMEN: Soft, non-distended, no guarding. MSK: Normal ROM, no swelling/deformity to bilateral UEs or LEs, moving all extremities without weakness, no cyanosis, spine midline without tenderness, normal curvature. NEURO: Mental Status AAOx4 - alert to person, place, time, events No facial droop, no forehead involvement. Motor: No focal weakness - strength 5/5 in bilateral UEs and LEs, proximal and distal, symmetric. Sensory: sensation intact to light touch globally. Gait normal: patient ambulated without ataxia into ED room. PSYCH: euthymic, cooperative, pleasant, appropriate speech Course Vital Signs Vital signs: Vital Signs Temperature 36.3 C L 11/06/24 08:01 Pulse 80 11/06/24 08:01 Respiratory Rate 15 11/06/24 08:01 Blood Pressure 135/80 11/06/24 08:01 Pulse Oximetry 98 11/06/24 08:01 Temperature 36.3 C L 11/06/24 08:01 Temperature Source Oral 11/06/24 08:01 Pulse 80 11/06/24 08:01 Respiratory Rate 15 11/06/24 08:01 Blood Pressure 135/80 11/06/24 08:01 Blood Pressure Position Sitting 11/06/24 08:01 Pulse Oximetry 98 11/06/24 08:01 Oxygen Delivery Method Room Air 11/06/24 08:01 Oxygen Flow Rate 0 11/06/24 08:01 Pain Level 5 11/06/24 08:08 Medical Decision Making This dictation utilizes [id number] dictation software and may contain unedited grammatical errors. 24 year-old male presents to ED today by POV/ambulating with a chief complaint of scalp abrasion/laceration, hit his head on a plow at work, with onset just prior to arrival. Quality described as not overly painful, had brief dizziness/headache, no radiation to amnesia, nausea/vomiting, visual changes, lethargy, tinnitus, neck pain, LOC, active bleeding. Severity is described as mild. Palliating factors include nothing specific attempted. Provoking factors include nothing specific. Events leading up to the incident/Associated Symptoms: Patients last Tdap 2014. Patients' medical history: noncontributory. Family and social history: works as plow pick up truck driver. Pertinent exam findings / vital signs include minor 0.2cm scalp abrasion to posterior crown of head, no active bleeding, no gross contamination, no midline C-spine tenderness, neuro intact. Differential / pathologies of concern include scalp abrasion, concussion. Diagnostic studies of: -none. Interventions of: -Vomiting. ED Course/Assessment/Plan: 24-year-old male from striking his head on a plow at work- no active bleeding, cleaned by hourly sales staff, repaired with [employer], updated Tdap, return criteria for signs of infection. Findings not consistent with active bleeding, neck injury, neuro abnormality, consider minor concussion. Disposition of Abrasion of Scalp. Patient verbalized understanding of the plan and return to ED criteria and engaged in shared decision making. Medical Records Medical records reviewed: Yes I reviewed the patient's medical records. Quality:SDOH Health Related Social Needs: No Data to Display PFSH All Active Problems (Updated 11/06/24 @ 08:22 by DANIEL Sanchez) Abrasion of scalp (Acute) GERD (gastroesophageal reflux disease) (Chronic) Anxiety (Chronic) Medical History Closed left clavicular fracture With surgery 01/08 Right inguinal hernia Pain in testicle due to trauma ER evaluation 09/22/18 Oppositional defiant disorder (09/11/15) Learning difficulty IEP Attention deficit hyperactivity disorder Surgical History History of herniorrhaphy right inguinal, Dr Dee Dee Nolen, [facility] Repair, Undescended Testicle 07/23 Circumcision Family History Mother Essential hypertension Mental disorder depression/anxiety Father Mental disorder anxiety Sister Asthma Grandparent Diabetes Mental disorder anxiety Neoplasm Social History Smoking/Tobacco Use Status: Never Smoking risk assessment performed?: Yes Alcohol Intake: never Drug use: Never Substance use type: does not use Household members: other Details: Living at home with mom, dad, sister Education Level: other Details: Working at [employer] Department; Training: ladder one: on-line and hands-on current occupation: vegetable farmer Pets and animals: Yes (2 cats) Pets and animals: cat(s) Sexually active: Yes Seatbelt use: always Helmet use: Yes Helmet use: always Fire extinguisher in home: Yes Carbon monox detector in home: Yes Do you feel safe at home: Yes Do you feel safe in your relationship?: Yes
[2024-11-06] MEDS: Diph,Pertuss(Acell),Tet Vac/Pf 0.5 ML SYR IM (08:23)
== END 2024-11-06 08:30 | disposition home or self-care (01) ==
PROVIDERS: Emergency Provider Physician Assistant; PCP Family Medicine
DX: S00.01XA Abrasion of scalp, initial encounter (principal); W22.8XXA Striking against or struck by other objects, initial encounter; Y93.89 Activity, other specified; Z23 Encounter for immunization
CPT/HCPCS: 90471; 90715; 99283

== ENCOUNTER 2025-02-25 15:29 | Emergency (ER) | payer BC, SELFPAY ==
[2025-02-25 15:31] VITALS: BP 119/75; PULSE 90; RESP 18; TEMP 36.6
--- NOTE | 2025-02-25 15:52 | W.ED.GENAD ---
Discharge Plan Disposition Patient Disposition: Home Discharge Details Clinical Impression: Tick bite Primary Care Provider: Fransisco Crenshaw ED Provider: Stefany Sneed Home Meds and New Rx's Prescriptions: New doxycycline hyclate 100 mg capsule 100 mg PO DAILY 21 Days Qty: 21 0RF doxycycline hyclate 100 mg capsule 100 mg PO BID 21 Days Qty: 42 0RF Discharge Instructions Instructions: Lyme Disease Test Additional Instructions: Given your history of tick bite, we will start oral doxycycline for treatment and prevention of Lyme disease complications. You have been prescribed 21 days of medication, but if you have not developed any symptoms, rash fever joint pain after 14 days, you can stop taking medication. If you have any complications, please return to the emergency department for reevaluation. HPI General Date/Time Provider Initiated Documentation: 02/25/25 15:36. Limitations to Documentation: no limitations. Information obtained by: patient. HPI Narrative: 24-year-old gentleman without significant past medical history presents for evaluation of tick bite. The patient reports that he noted a tick on his back and one on the neck a few days ago he pulled them off. He they have been off for over 72 hours but he has some irritation at the site of the 1 on his back he is not sure if he got the whole tick off. Related Data Home Medications ?Medication ?Instructions ?Recorded ?Confirmed doxycycline hyclate 100 mg capsule 100 mg PO BID 21 days #42 caps 02/25/25 doxycycline hyclate 100 mg capsule 100 mg PO DAILY 21 days #21 caps 02/25/25 Previous Rx's ?Medication ?Instructions ?Recorded doxycycline hyclate 100 mg capsule 100 mg PO BID 21 days #42 caps 02/25/25 doxycycline hyclate 100 mg capsule 100 mg PO DAILY 21 days #21 caps 02/25/25 Allergies Allergy/AdvReac Type Severity Reaction Status Date / Time No Known Allergies Allergy Verified 11/06/24 08:08 General Stated Complaint: InsectBite BRAYDEN: 4 Exam Narrative Exam Narrative: Review of Systems: All systems reviewed & are unremarkable except as noted in HPI and below Well-developed, no acute distress Afebrile NCAT Posterior neck with a small scabbed area, left mid back with an area that does not appear to have a clearly embedded tick, but does feel indurated with some small amount of erythema, no evidence of EM or cellulitis Course Vital Signs Vital signs: Vital Signs Temperature 36.6 C 02/25/25 15:31 Pulse 90 02/25/25 15:31 Respiratory Rate 18 02/25/25 15:31 Blood Pressure 119/75 02/25/25 15:31 Temperature 36.6 C 02/25/25 15:31 Pulse 90 02/25/25 15:31 Respiratory Rate 18 02/25/25 15:31 Blood Pressure 119/75 02/25/25 15:31 Medical Decision Making Emergent evaluation of tick bite. Initial differential includes foreign body, tick borne disease, cellulitis. A tick on him but there are 2 lesions of concern. No erythema migrans noted, no joint or systemic symptoms noted. Given the endemic region and an observed tick bite will start on doxycycline. Return precautions advised. Quality:SDOH Health Related Social Needs: No Data to Display PFSH All Active Problems (Updated 02/25/25 @ 15:43 by Stefany Sneed MD) Tick bite (Acute) GERD (gastroesophageal reflux disease) (Chronic) Anxiety (Chronic) Medical History Closed left clavicular fracture With surgery 01/08 Right inguinal hernia Pain in testicle due to trauma ER evaluation 09/22/18 Oppositional defiant disorder (09/11/15) Learning difficulty IEP Attention deficit hyperactivity disorder Surgical History History of herniorrhaphy right inguinal, Dr Dee Dee Nolen, [facility] Repair, Undescended Testicle 07/23 Circumcision Family History Mother Essential hypertension Mental disorder depression/anxiety Father Mental disorder anxiety Sister Asthma Grandparent Diabetes Mental disorder anxiety Neoplasm Social History Smoking/Tobacco Use Status: Never Smoking risk assessment performed?: Yes Alcohol Intake: current Alcohol Intake frequency: 0-2 drinks per day Alcohol type: beer Drug use: Never Substance use type: does not use Household members: other Details: Living at home with mom, dad, sister Education Level: other Details: Working at [employer] Department; Training: ladder one: on-line and hands-on current occupation: dryland farmer Pets and animals: Yes (2 cats) Pets and animals: cat(s) Sexually active: Yes Seatbelt use: always Helmet use: Yes Helmet use: always Fire extinguisher in home: Yes Carbon monox detector in home: Yes Do you feel safe at home: Yes Do you feel safe in your relationship?: Yes
[2025-02-25] MEDS: Doxycycline Hyclate 100 MG, 2 CAPS/BTL PO (16:01)
== END 2025-02-25 16:02 | disposition home or self-care (01) ==
PROVIDERS: Emergency Provider Emergency Medicine; PCP Family Medicine
DX: S10.96XA Insect bite of unspecified part of neck, initial encounter (principal); W57.XXXA Bitten or stung by nonvenomous insect and other nonvenomous arthropods, initial encounter; Y93.89 Activity, other specified; Y92.89 Other specified places as the place of occurrence of the external cause
CPT/HCPCS: 99283